=== PATIENT | male | born 1970 | race Caucasian/White ===

== ENCOUNTER 2021-01-14 06:59 | Emergency (ER) | payer OTHER ==
[~2021-01-14] VITALS: Ht 180.3 cm; Wt 70.3 kg
[~2021-01-14 06:59] MED LIST: IBU600 MG PO
[2021-01-14] MEDS ORDERED: PENVK500 PO (08:13)
== END 2021-01-14 10:58 | disposition home or self-care (01) ==
LOC: ER 06:59
DX: K04.7 Periapical abscess without sinus (principal)
CPT/HCPCS: 99284